=== PATIENT | female | born 1945 | race Two or more races ===

== ENCOUNTER 2017-07-02 09:56 | Emergency (ER) | payer OTHER ==
[~2017-07-02] VITALS: Ht 147.3 cm; Wt 61.2 kg
[2017-07-02 10:23] VITALS: BP 131/83
[2017-07-02] MEDS ORDERED: KETOROLAC TROMETH 30 MG/ML 1ML VIAL IM ONE (11:45)
== END 2017-07-02 12:31 | disposition home or self-care (01) ==
LOC: ER 09:56
DX: M17.11 Unilateral primary osteoarthritis, right knee (principal); E78.5 Hyperlipidemia, unspecified
CPT/HCPCS: 73562; 96372; 99284; J1885